=== PATIENT | male | born 1945 | race Caucasian/White ===

== ENCOUNTER 2018-06-27 11:00 | Outpatient (RCR) | payer OTHER, MEDICARE | END 2018-07-22 | disposition home or self-care (01) | LOC: PTY 11:00 | DX: M54.16 Radiculopathy, lumbar region (principal); M54.41 Lumbago with sciatica, right side; E11.9 Type 2 diabetes mellitus without complications; M81.0 Age-related osteoporosis without current pathological fracture | CPT/HCPCS: 97110; 97161; G8978; G8979 ==

== ENCOUNTER 2018-07-29 10:23 | Outpatient (RCR) | payer OTHER, MEDICARE | END 2018-08-21 | disposition home or self-care (01) | LOC: PTY 10:23 | DX: M54.41 Lumbago with sciatica, right side (principal); M54.16 Radiculopathy, lumbar region; E11.9 Type 2 diabetes mellitus without complications; M81.0 Age-related osteoporosis without current pathological fracture ==